=== PATIENT | male | born 2000 | race Caucasian/White ===

== ENCOUNTER 2023-11-10 12:04 | Emergency (ER) | payer BC ==
[~2023-11-10] VITALS: Ht 182.9 cm; Wt 59.1 kg
[2023-11-10 12:15] VITALS: BP 143/89; TEMP 98.1
[2023-11-10 12:54] VITALS: PULSE 72; RESP 16; O2SAT 99
[2023-11-10] MEDS: ipratropium/albuterol 3ml nebule NEB STA (12:54)
[2023-11-10 12:58] VITALS: PULSE 91; RESP 20; O2SAT 100
[2023-11-10] MEDS: dexamethasone sod phosphate 10mg/ml inj PO STA (13:04)
[2023-11-10] MEDS ORDERED: ALBU8HFA INH (13:19)
[2023-11-10] MEDS ORDERED: PRED20TA PO (13:19)
== END 2023-11-10 13:33 | disposition home or self-care (01) ==
LOC: ER 12:05
DX: J06.9 Acute upper respiratory infection, unspecified (principal); Z88.0 Allergy status to penicillin
CPT/HCPCS: 71045; 94640; 99283; J1100; 94760